=== PATIENT | female | born 1950 | race Asian ===

== ENCOUNTER 2017-09-16 10:29 | Outpatient (CLI) | payer MEDICARE, OTHER ==
[2017-09-16 18:38] LABS: CHOL/HDL RATIO 3.6 (<4.4); CHOLESTEROL 138 mg/dL; CREATININE 0.8 mg/dL (0.4-1.0); GFR - MDRD 71 (>89); HDL CHOLESTEROL 38 mg/dL; LDL CHOLESTEROL,CALCULATED 78 mg/dL; LDL CHOLESTEROL,DIRECT 91 mg/dL; LDL/HDL RATIO 2.1 (<4.4); VLDL CHOLESTEROL 22 mg/dL
[2017-09-16 19:24] LABS: HB2 TOTAL 16.4 g/dL; HEMOGLOBIN A1C 0.75 g/dL; HEMOGLOBIN A1C % 6.3 % (4.6-6.2)
== END 2017-09-16 10:30 | disposition home or self-care (01) ==
LOC: LAB.F 10:29
PROVIDERS: ATTEND Family Medicine
DX: E11.41 Type 2 diabetes mellitus with diabetic mononeuropathy (principal); E11.65 Type 2 diabetes mellitus with hyperglycemia
CPT/HCPCS: 36415; 80061; 82565; 83036; 83721; 84132